=== PATIENT | female | born 1990 | race Caucasian/White ===

== ENCOUNTER → 2017-07-29 15:23 | Outpatient (CLI) | payer OTHER, SELFPAY ==
[2017-07-29 15:26] LABS: Adenovirus,PCR Not Detected (NotDetected); Bordetella Pertussis Not Detected (NotDetected); Chlamydophila Pneumoniae, PCR Not Detected (NotDetected); Coronavirus 229E Not Detected (NotDetected); Coronavirus NL63 Not Detected (NotDetected); Coronavirus OC43 Not Detected (NotDetected); Coronovirus HKU1,PCR Not Detected (NotDetected); Human Metapneumovirus Not Detected (NotDetected); Influenza A, PCR Not Detected (NotDetected); Influenza AH1, 2009 Not Detected (NotDetected); Influenza AH1, PCR Not Detected (NotDetected); Influenza AH3,PCR Not Detected (NotDetected); Influenza B, PCR Not Detected (NotDetected); Mycoplasma Pneumoniae, PCR Not Detected (NotDected); Parainfluenza 1, PCR Not Detected (NotDetected); Parainfluenza 2, PCR Not Detected (NotDetected); Parainfluenza 3, PCR Not Detected (NotDetected); Parainfluenza 4, PCR Not Detected (NotDetected); Respiratory Syncytial Virus Not Detected (NotDetected); Rhinovirus/Enterovirus Not Detected (NotDetected)
== END ==
PROVIDERS: PCP Family Medicine Geriatric Medicine; Visit Provider Nurse Practitioner Family
DX: R11.0 Nausea (principal); R51 Headache; R19.7 Diarrhea, unspecified; R52 Pain, unspecified
CPT/HCPCS: 87486; 87581; 87633; 87798

== ENCOUNTER 2021-02-06 21:48 | Emergency (ER) | payer OTHER, SELFPAY ==
[2021-02-06 22:00] VITALS: BP 113/80; PULSE 78; RESP 18; TEMP 36.8; O2SAT 100; BMI 56.6
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
[2021-02-06 22:34] LABS: Urine Pregnancy, HCG Qual. Negative (Negative)
[2021-02-07 00:02] VITALS: BP 121/72; PULSE 72; RESP 18; TEMP 36.8; O2SAT 100
== END 2021-02-07 00:03 | disposition home or self-care (01) ==
PROVIDERS: Emergency Provider Emergency Medicine
DX: S06.0X0A Concussion without loss of consciousness, initial encounter (principal); S13.4XXA Sprain of ligaments of cervical spine, initial encounter; V43.62XA Car passenger injured in collision with other type car in traffic accident, initial encounter; Y92.414 Local residential or business street as the place of occurrence of the external cause
CPT/HCPCS: 70450; 71045; 72125; 72170; 81025; 96372; 99282

== ENCOUNTER → 2023-02-04 10:19 | Outpatient (CLI) | payer OTHER, SELFPAY ==
--- NOTE | 2023-02-04 10:27 | XR_ITS ---
FINAL REPORT CLINICAL HISTORY: left foot pain. injury back in April, , still having pain, seeing new doctor for second opinion. COMPARISON: None FINDINGS: LEFT FOOT Three views of the left foot demonstrate an oblique lucency through the base of the fifth metatarsal. The margins appear smooth. There appears to be healing fracture through the base of the fifth metatarsal. However, persistent lucency is concerning for possible underlying pseudoarthrosis. The visualized joint spaces are normally aligned. The soft tissues are unremarkable. IMPRESSION: Persistent lucency base of the fifth metatarsal concerning for possible underlying pseudoarthrosis. Please correlate with nature of symptoms. Reviewed, Interpreted and Dictated by Wilfrido Gamino MD Transcribed by Leticia Maxwell Authenticated and [facility]
== END ==
PROVIDERS: PCP Nurse Practitioner Family; Visit Provider Nurse Practitioner Family
DX: M79.672 Pain in left foot (principal)
CPT/HCPCS: 73630

== ENCOUNTER → 2023-03-14 06:50 | Outpatient (CLI) | payer OTHER, SELFPAY ==
--- NOTE | 2023-03-14 06:54 | CT_ITS ---
FINAL REPORT TECHNIQUE: Thin section axial images were obtained through the left lower extremity without contrast. Reconstruction images were obtained from the axial data. Exam was performed using dose reduction technique. CLINICAL HISTORY: foot pain FINDINGS: There is a lucency through the base of the fifth metatarsal consistent with a nondisplaced fracture. This is not acute. Favor late subacute or chronic. There is at least partial bony fusion. No additional acute osseous abnormality is identified. The Lisfranc articulation is intact. Joint spaces are preserved. No acute soft tissue abnormality is identified. IMPRESSION: Late subacute or chronic fracture of the base of the fifth metatarsal. There may be a component of partial nonunion. No acute soft tissue abnormality. Authenticated and [facility]
== END ==
PROVIDERS: PCP Nurse Practitioner Family; Visit Provider Podiatrist
DX: M79.672 Pain in left foot (principal); R60.0 Localized edema; S92.902K Unspecified fracture of left foot, subsequent encounter for fracture with nonunion
CPT/HCPCS: 73700

== ENCOUNTER → 2023-04-10 11:03 | Outpatient (CLI) | payer OTHER, SELFPAY ==
--- NOTE | 2023-04-10 11:05 | XR_ITS ---
FINAL REPORT CLINICAL HISTORY: left foot pain COMPARISON: 02/04/2023 FINDINGS: Left foot Three views were obtained. There is a subacute to chronic fracture of the proximal 5th metatarsal with evidence of interval healing. There is no new bony abnormality. Small calcaneal spurs are identified. IMPRESSION: Interval healing of the proximal 5th metacarpal fracture. Reviewed, Interpreted and Dictated by Julio Finn III, MD Transcribed by Re Sam Authenticated and [facility]
== END ==
PROVIDERS: PCP Nurse Practitioner Family; Visit Provider Podiatrist
DX: M79.672 Pain in left foot (principal)
CPT/HCPCS: 73630

== ENCOUNTER → 2023-05-01 14:17 | Outpatient (CLI) | payer OTHER, SELFPAY ==
--- NOTE | 2023-05-01 14:21 | XR_ITS ---
FINAL REPORT CLINICAL HISTORY: foot pain FINDINGS: Left foot Three views were obtained. There is no acute fracture or dislocation. There is a small plantar spur. There is soft tissue swelling over the dorsum of the foot measuring 2 cm. IMPRESSION: Soft tissue swelling over the dorsum of the foot. Reviewed, Interpreted and Dictated by Wilfrido Gamino MD Transcribed by Re Sam Authenticated and [facility]
== END ==
PROVIDERS: PCP Nurse Practitioner Family; Visit Provider Podiatrist
DX: M79.672 Pain in left foot (principal)
CPT/HCPCS: 73630

== ENCOUNTER 2023-12-04 14:19 | Outpatient (CLI) | payer OTHER, SELFPAY ==
--- NOTE | 2023-12-04 14:23 | XR_ITS ---
FINAL REPORT CLINICAL HISTORY: foot pain..hx of fx COMPARISON: 04/10/2023 FINDINGS: LEFT FOOT: Three views show no evidence of acute displaced fracture or dislocation of the visualized bony architecture. The joint spaces appear normal. A plantar calcaneal spur is present. IMPRESSION: Plantar calcaneal spur, no acute bony abnormality present. Reviewed, Interpreted and Dictated by Mily Davies MD Transcribed by Monica White Authenticated and [facility]
== END 2023-12-04 23:59 | disposition home or self-care (01) ==
LOC: RAD 14:19
PROVIDERS: PCP Nurse Practitioner Family; Visit Provider Podiatrist
DX: M79.672 Pain in left foot (principal)
CPT/HCPCS: 73630

== ENCOUNTER 2023-12-11 09:44 | Outpatient (CLI) | payer OTHER, SELFPAY ==
--- NOTE | 2023-12-11 09:45 | MR_ITS ---
FINAL REPORT TECHNIQUE: Multiplanar MR of the foot without gadolinium enhancement. 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 Very minimal signal change along the old fracture line. However, bony union is noted on MRI. Remaining osseous structures intact. Joints: Unremarkable Tendons:Visualized tendons are unremarkable Ligaments:Major ligaments intact Plantar Fascia:No evidence of tear No cystic or soft tissue mass. IMPRESSION: Healed proximal fifth metatarsal fracture. Reviewed, Interpreted and Dictated by Mily Davies MD Transcribed by Leticia Maxwell Authenticated and [facility]
== END 2023-12-11 23:59 | disposition home or self-care (01) ==
LOC: RAD 09:45
PROVIDERS: PCP Nurse Practitioner Family; Visit Provider Podiatrist
DX: M79.672 Pain in left foot (principal); S92.902K Unspecified fracture of left foot, subsequent encounter for fracture with nonunion; Z87.81 Personal history of (healed) traumatic fracture
CPT/HCPCS: 73718

== ENCOUNTER 2023-12-18 10:00 | Outpatient (CLI) | payer OTHER, SELFPAY ==
--- NOTE | 2023-12-18 10:12 | ECG_ITS ---
APPROVED REPORT Exam: Resting ECG HR:73 bpm ECG Measurements Heart Rate 73 AXES ID 160 P 12 QRSd 106 QRS 44 QT 374 T 28 QTc 399 Conclusion SINUS RHYTHM POSSIBLE RIGHT VENTRICULAR CONDUCTION DELAY [RSR (QR) IN V1/V2] BORDERLINE ECG UNCONFIRMED REPORT Electronically signed by : Shade Lizama MD 12/22/2023 18:57:37
[2023-12-18 10:32] LABS: Basophils # 0.1 K/mm3 (0-0.2); Basophils % 0.9 % (0.1-2.0); Eosinophils # 0.3 K/mm3 (0.0-0.4); Eosinophils % 4.5 % (0.1-12.0); Hematocrit 35.1 % (37.0-47.0); Hemoglobin 13.3 g/dL (12.2-16.2); Lymphocytes # 2.2 K/mm3 (0.7-4.5); Lymphocytes % 37.2 % (10-50); Mean Corpuscular HGB Conc 38.1 g/dL (31.8-35.4); Mean Corpuscular Hemoglobin 36.1 pg (27.0-31.2); Mean Corpuscular Volume 94.9 fl (81-99); Monocytes # 0.3 K/mm3 (0.1-1.0); Monocytes % 5.6 % (1.7-9.3); Neutrophils % 51.8 % (37.0-80.0); Platelet Count 272 K/mm3 (142-424); Red Cell Distribution Width 14.5 % (11.5-17.5); White Blood Count 5.8 K/mm3 (4.8-10.8)
[2023-12-18 10:57] LABS: Chloride 111 mmol/L (98-107); Potassium 4.4 mmoL/L (3.5-5.1); Sodium 140 mmol/L (136-145)
[2023-12-18 10:59] LABS: Alanine Aminotransferase 23 U/L (12-78); Aspartate Amino Transferase 20 U/L (14-36); Blood Urea Nitrogen 8 mg/dl (7-17); Estimated Glomerular Filt Rate 98 ml/min (>60); GFR (African American) 118 ML/MIN (>60)
[2023-12-18 11:00] LABS: Albumin Level 3.8 g/dl (3.5-5.0); Albumin/Globulin Ratio 1.5 (1.1-1.8); Alkaline Phosphatase 66 U/L (38-126); Anion Gap 8.4 mEq/L (5-15); Bilirubin,Total 0.4 mg/dl (0.2-1.3); Calcium 9.4 mg/dl (8.4-10.2); Carbon Dioxide 25 mmol/L (22.0-30.0); Globulin 2.6 g/dL (1.3-3.2); Glucose 103 mg/dl (74-100); Total Protein,Serum 6.4 g/dl (6.3-8.2)
[2023-12-18 11:02] LABS: HCG Qualitative, Serum Negative (Negative)
[2023-12-18 11:05] LABS: C-Reactive Protein 2.9 mg/L (0-4)
[2023-12-18 11:48] LABS: Erythrocyte Sedimentation Rate 15 mm/hr (0-20)
[2023-12-29 12:44] LABS: 1,25 Dihydroxy Vitamin D <10 pg/mL (.); 1,25-Dihydroxy, Vitamin D-2 <10 pg/mL (.); 1,25-Dihydroxy, Vitamin D-3 <10 pg/mL (.)
== END 2023-12-18 23:59 | disposition home or self-care (01) ==
PROVIDERS: PCP Nurse Practitioner Family; Visit Provider Podiatrist
DX: Z01.818 Encounter for other preprocedural examination (principal); S92.902K Unspecified fracture of left foot, subsequent encounter for fracture with nonunion; S92.355S Nondisplaced fracture of fifth metatarsal bone, left foot, sequela
CPT/HCPCS: 36415; 80053; 82652; 84703; 85025; 85651; 86140; 93005

== ENCOUNTER 2024-01-01 10:45 | Day surgery (SDC) | payer OTHER, SELFPAY ==
[2023-12-30 13:24] VITALS: BMI 53.5
[2024-01-01] VITALS (10 sets, daily range): BP systolic 102–119; BP diastolic 55–75; PULSE 87–103; RESP 16–20; TEMP 35–36.8; O2SAT 96–99
[2024-01-01 11:10] LABS: Urine Pregnancy, HCG Qual. Negative (Negative)
--- NOTE | 2024-01-01 11:20 | EXP.ANES.CKL ---
[facility] Disclaimer: The information contained in this section may have been updated after the patient was seen, as this information can be updated by other users. Medical History GERD (gastroesophageal reflux disease) Edema delivery delivered Surgical History History of cholecystectomy History of D&C History of myringotomy History of tonsillectomy Family History Brother Asthma Grandfather Hyperlipidemia Social History (Updated 01/01/24 @ 11:10 by Lurdes Welsh RN) Smoking Status: Never smoker alcohol intake: never substance use type: denies use current occupational status: employed Travel in the last 8 weeks: None [facility] Anesthesia Checklist Patient Identification Patient Identification: Arm Band, Family and Verbal (Name & ) Structural Data Admitted From: Home Planned Operative Procedure/s: ORIF LT 5th metatarsal; Calcaneal autiograft LT peroneal tendon revision Consent for Planned Operative Procedure(s) Verified: Yes Verified Documents: Surgical Consent and History and Physical NPO Status Verified Time NPO: 23:30 Chart Verification Results Verified: CBC, BMP, ECG and HCG Additional verifications Patient : No Anesthesia Reactions: No Cardiovascular Assessment Heart Sounds: S1 & S2 Pulse Rhythm: Irregular Peripheral Edema: No Airway Assessment Mallampati Score:: Class II C-Spine Mobility Assessed: Yes (FROM) TMJ Mobility Assessed: Yes Dentition: Good Dentition (Nothing loose per pt.) Neurological Assessment Level of Consciousness: Awake, Alert, Appropriate and Follows Commands Hx Seizures: No Numbness or tingling in extremities: No Anesthesia Plan Anesthesia Risk discussed: Yes Anesthesia Plan: Verified ASA Class: III Anesthesia Type: General w/block
[2024-01-01] MEDS: LACTATED RINGERS 1000ML 1,000 ML 25 ML IV (11:42)
[2024-01-01] MEDS: CEFAZOLIN SODIUM 2 GM in 0.9 % SODIUM CHLORIDE 100 ML IV (12:04)
--- NOTE | 2024-01-01 14:03 | XR_ITS ---
FINAL REPORT CLINICAL HISTORY: ORIF LEFT 5TH METATARSAL cumulative air kerma: 3.50 mgy 1:47min fluoro time FINDINGS: TWO VIEW LEFT FOOT, INTRAOPERATIVE FINDINGS: Limited digital intraoperative views show ORIF changes of the fifth metatarsal base. No fracture line is evident. No displacement is seen. The forefoot and hindfoot are not seen. IMPRESSION: Limited exam. Post ORIF of the fifth metatarsal base. Authenticated and [facility]
--- NOTE | 2024-01-01 14:15 | XR_ITS ---
FINAL REPORT CLINICAL HISTORY: L 5th met fx ORIF post op COMPARISON: 12/04/2023 FINDINGS: AP, oblique and lateral views of the left foot were obtained. There is no prior exam for comparison. In the interval since the prior exam of 12/04/2023 there has been interval placement of a screw in the proximal fifth metatarsal. There is no acute fracture or dislocation. The joint spaces are preserved. There is a soft tissue defect in the lateral hindfoot, likely postoperative change. IMPRESSION: Interval placement of a screw in the proximal fifth metatarsal, with a soft tissue defect in the lateral hindfoot, likely postoperative change. Reviewed, Interpreted and Dictated by Shantel Bowling MD Transcribed by Monica White Authenticated and [facility]
--- NOTE | 2024-01-01 14:28 | EXP.ANES.I ---
[facility] Anesthesia Record Part I Anesthesia Record I Intake, IV Amount: 1,000 Hydration: Adequate Estimated blood loss (mL): 5 Urine output (mL): 0 Blood Products used (#): none Blood Pressure: 105/62 SaO2: 97 Pulse Rate: 91 Airway Patency: Patent Respiratory Rate: 16 Temperature: 98.2 F Patient is:: Drowsy and Stable Stable to PACU at:: 14:20
--- NOTE | 2024-01-01 14:40 | EXP.OP.NOTE ---
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 She has seen several providers and previous treatment has included RICE protocol, immobilization fracture boot, bone stimulator, 3 hours daily, stretching and therapy. She reports the pain did improve at some point but never fully resolved. It has steadily worsened over the last few months since she got a new job. X-rays and left foot MRI were reviewed which show the fifth met fracture line still visible consistent with nonunion, peroneal edema, peroneal tenosynovitis with questionable tear noted. Conservative treatment discussed but not recommended. DOI: March 2022. We discussed surgery for left 5th met ORIF, non-union revision, peroneal repair. All risks and benefits were discussed including but not limited to: damage to blood vessels and nerves, bleeding, infection, wound complications, delayed, mal or non-union of bone, post-traumatic arthritis, need for further surgery, implant failure, need for removal of implant, prolonged or permanent swelling of the extremity, prolonged or permanent pain or deformity, CRPS/RSD, DVT/PE, and anesthetic complications including . No guarantees were given. All questions fully answered. The patient verbalized understanding and agreed to proceed with surgery. Consent was obtained. Operative findings:: Left ankle fifth metatarsal Avendano fracture with partial healing of the medial cortex. There was a secondary fracture line about 8 mm proximal to the Avendano fracture site that was not healed. No callus noted to the lateral cortex on either fracture lines. Significant subcutaneous tissue noted. Large lipoma over 4 cm round noted over the lateral ankle extending over the peroneal tendons. The peroneal tendons had synovitis but no obvious rupture or tear noted. Modifier: This case took 30 minutes longer than normal due to extensive soft tissue dissection secondary to patient's large body habitus, fracture nonunion. Operative note:: On this date and time patient was deemed an appropriate surgical candidate. With informed consent signed, pre-op regional popliteal block given by anesthesia. The patient was taken to the operating theater. The patient was positioned supine. General anesthesia was induced. IV Ancef given. Tourniquet applied to the mid-calf @225mmHg. Left lower extremity was prepped and draped in normal sterile fashion. Left calcaneal autograft bone harvest: Attention was directed to the lateral calcaneus where a stab incision was made. Full-thickness dissection down to the level of the bone. An autograft bone harvester was used to take a 10 mm piece of calcaneus bone. This was saved for later insertion into the nonunion site. Incision flushed with saline. Maxfuse DBM putty with chips were used to backfill the calcaneal autograft bone harvest site. Skin closed with nylon. Left peroneal tenosynovectomy, ankle lipoma excision: Separate incision was made under the lateral malleolus over the peroneal tendons. Dissection through skin into subcutaneous tissue with care to maintain surgical hemostasis safely retract the vascular structures. Tourniquet inflated, bleeding controlled. There was significant fatty tissue and a well-defined lipoma noted extending from the distal fibula over the peroneal tendons. Lipoma was excised and sent for path. Wound flushed with saline. Peroneal tendons identified and no tear noted. Significant synovitis noted which was debrided with a 15 blade and forceps. Piece of peroneal sent to path. Due to the degree of synovitis, decision made to use a piece of amniotic graft over the tendons to prevent tendon adhesion and scar tissue formation. Deep and subcutaneous tissue repaired with Vicryl. A Quique guard was applied over the area of highest tension at the apex of the incision. Nylon used to close skin. Left 5th Metatarsal/Avendano Fracture ORIF, repair non-union: Attention was directed to the lateral foot, where intra-op fluoroscopy was used to map out linear incision along 5th metatarsal. Full-thickness dissection down to level of bone with care to maintain surgical hemostasis and safely track neurovascular structures. 2 fracture lines visible. Saw, osteotome and currette used to complete and clean the fracture sites. Saline used to flush wound. Next, a 15' blade was used to make a small incision proximal to the 5th met base. Dissection was then carried bluntly with a hemostat to the bone. Fracture was reduced. The wound was flushed with copious amounts of saline. A guide wire for a 4.5mm Vilex screw was inserted under fluoro. Position was checked in all 3 planes. The K-wire was in good position, extending down the medullary canal. At this point, a cannulated drill and tap were used. Calcaneal autograft bone was inserted into fracture site. Due to the subcutaneous tissue and the difficulty trying to insert a solid core without the guidewire, decision made to use a 40mm cannulated 4.5mm screw. It was inserted in standard technique, while compressing the fracture. Good screw purchase and compression was noted. Remaining DBM putty was packed around the fracture site. At this point final position was checked under intra-op fluoro and deemed to be appropriate with stable fixation. Remaining piece of amniotic graft was inserted over the fracture site and tissue was closed with Vicryl and nylon. The wounds were cleansed. The tourniquet was deflated at 70 mins. Immediate hyperemic response was noted to the digits. Skin cleansed. Xeroform, dry sterile dressing was applied followed by a compressive dressing. The patient was awoken from anesthesia and transferred to recovery with vital signs stable and neurovascular status intact. Patient appeared to tolerate procedure and anesthesia well without complication. Materials: Vilex 4.5mm solid core partially threaded screw (40mm), [place] [employer] Amnio Shaan graft x1 (4x4cm), 5cc Max fuse DBM putty with chips Discharge/Plan: Patient is to maintain posterior splint clean dry and intact. Ice behind the knee and elevate on two pillows. Non weight bearing to the left lower extremity with RKS. Take Rx as previously directed. Rx given for Percocet, Gabapentin, Zofran and Motrin 800mg. Obtain post op films, left foot. Follow up with me in one week as scheduled for incision check and dressing change. Tourniquet time (min): 70 Condition: stable Disposition: same day Specimens:: Left ankle lipoma Left peroneal tendon Complications:: None
--- NOTE | 2024-01-02 07:14 | P.PNANES_ITS ---
[facility] Anesthesia Record Part II Anesthesia Record Part II Discharge Time: 14:50 Destination: Surgical Day Care (OP Surgery) PACU nurse assessment reviewed?: Yes Patient Condition:: Good Anesthesia Complications:: None Swallowing reflex intact?: Yes Airway Patency: Patent Cyanosis?: No Blood Pressure: 102/55 SaO2: 97 Respiratory Rate: 18 Pulse Rate: 93 Temperature: 97.4 F Mental Status: Alert & Oriented Pain level:: 0 Nausea and/or vomitting:: None Intake, IV Amount: 0 Hydration: Adequate
[2024-01-02 07:15] VITALS: BP 102/55; PULSE 93; RESP 18; TEMP 36.3; O2SAT 97
== END 2024-01-01 15:22 | disposition home or self-care (01) ==
PROVIDERS: PCP Nurse Practitioner Family; Visit Provider Podiatrist
PROC: (CPT 28322; principal; 2024-01-01 12:15)
PROC: (CPT 28322; 2024-01-01 12:15)
DX: S92.352K Displaced fracture of fifth metatarsal bone, left foot, subsequent encounter for fracture with nonunion (principal); M76.72 Peroneal tendinitis, left leg; M79.672 Pain in left foot; E66.01 Morbid (severe) obesity due to excess calories; Z68.43 Body mass index [BMI] 50.0-59.9, adult; Z79.899 Other long term (current) drug therapy; D17.39 Benign lipomatous neoplasm of skin and subcutaneous tissue of other sites
CPT/HCPCS: 28322; 27626; 11424; 73620; 73630; 76000; 81025; 96374; C1713; J0690; J1100; J1885; J2250; J2405; J3010; J7120

== ENCOUNTER 2024-01-09 10:15 | Outpatient (CLI) | payer OTHER, SELFPAY | END 2024-01-09 23:59 | disposition home or self-care (01) | LOC: LAB.DROPOF 01-10 09:49 | PROVIDERS: PCP Nurse Practitioner Family; Visit Provider Podiatrist | DX: Z98.890 Other specified postprocedural states (principal); R60.9 Edema, unspecified | CPT/HCPCS: 87070; 87205 ==

== ENCOUNTER 2024-01-24 20:57 | Emergency (ER) | payer OTHER, SELFPAY ==
[2024-01-24 21:00] VITALS: BP 131/77; PULSE 114; RESP 16; TEMP 36.9; O2SAT 100; BMI 52.7
[2024-01-24 21:13] VITALS: PULSE 98
--- NOTE | 2024-01-24 21:16 | XR_ITS ---
PROCEDURE INFORMATION: Exam: XR Left Foot Exam date and time: 01/24/2024 9:21 PM Age: 33 years old Clinical indication: Injury or trauma; Fall; Blunt trauma; Foot; Prior surgery; Surgery date: <1 month; Surgery type: Orif left 5th metatarsal; Additional info: Fall, pain, recent surgery TECHNIQUE: Imaging protocol: Radiologic exam of the left foot. Views: 3 or more views. COMPARISON: CR XR FOOT LT MIN 3V 01/01/2024 2:28 PM FINDINGS: Bones/joints: Screw fixation 5th metatarsal; with lucency at the old fracture site; new compared with 01/01/2024. Small heel spur. Soft tissues: Normal. IMPRESSION: Screw fixation 5th metatarsal; with transfers lucency at the old fracture site; new compared with 01/01/2024. Possible recurrent fracture. Recommend clinical correlation.
--- NOTE | 2024-01-24 21:16 | XR_ITS ---
PROCEDURE INFORMATION: Exam: XR Left Ankle Exam date and time: 01/24/2024 9:21 PM Age: 33 years old Clinical indication: Injury or trauma; Fall; Blunt trauma; Ankle; Prior surgery; Surgery date: <1 month; Surgery type: Orif left 5th metatarsal; Additional info: Fall, ankle pain TECHNIQUE: Imaging protocol: Radiologic exam of the left ankle. Views: 3 or more views. COMPARISON: CR XR FOOT LT MIN 3V 01/24/2024 9:21 PM FINDINGS: Bones/joints: No acute fracture. Screw fixation 5th metatarsal. Small heel spur. Soft tissues: Normal. IMPRESSION: 1. No acute fracture. 2. Screw fixation 5th metatarsal. 3. Small heel spur.
[2024-01-24 21:45] VITALS: BP 121/81; PULSE 93; O2SAT 100
--- NOTE | 2024-01-24 21:47 | ED_ITS ---
Discharge Plan Disposition Patient Disposition: Home, Self-Care Chief Complaint: Extremity Injury, Lower Prescriptions Prescriptions: No Action omeprazole 40 mg capsule,delayed release(DR/EC) 40 mg PO DAILY furosemide [Lasix] 20 mg tablet 20 mg PO QID bupropion HCl [Wellbutrin XL] 150 mg tablet extended release 24 hr 150 mg PO DAILY Patient Comments: TAKE 1 TABLET BY MOUTH EVERY MORNING WITH 300 MG FOR TOTAL OF 450 MG meloxicam 7.5 mg tablet 7.5 mg PO DAILY 30 Days Qty: 30 2RF hydrocodone-acetaminophen 7.5-325 mg tablet 1 tab PO Q4-6H PRN (Reason: post op pain) 7 Days Qty: 30 0RF gabapentin 100 mg capsule 100 mg PO TID PRN (Reason: postop nerve pain) 10 Days Qty: 30 0RF ondansetron 4 mg tablet,disintegrating 4 mg PO Q6H Qty: 30 2RF cholecalciferol (vitamin D3) 1,250 mcg (50,000 unit) capsule 1,250 mcg PO WEEKLY 98 Days Qty: 14 0RF propranolol 10 MG tablet 10 mg PO DAILY famotidine 20 MG tablet 20 mg PO BID bupropion HCl [Wellbutrin XL] 300 MG tablet extended release 24 hr 300 mg PO DAILY docusate sodium 100 mg Capsule 100 mg PO DAILY folic acid 1 mg Tablet 1 mg PO DAILY phentermine 37.5 mg Capsule 37.5 mg PO DAILY Rx Instructions: must administer 30 minutes before or 1-2 hours after breakfast methylprednisolone [Medrol (Shakir)] 4 mg tablets,dose pack 4 mg PO PER PKG DIR Referrals Follow up/Referrals: Provider,Referral, MD [Primary Care Provider] - See instructions Activity Restrictions/Add. Instructions Additional Instructions/Restrictions: At this time it was felt you are safe to be discharged home. If new or worsening symptoms please do not hesitate to return the emergency department. Please continue to be nonweightbearing as discussed with Dr. Camarena and follow- up with her as you are able. Clinical Impressions Clinical Impression: Traumatic injury of ankle Print Language Print Language: Wolof Discharge ED Provider: Harinder Portillo General Adult HPI General Chief complaint: Extremity Injury, Lower Stated complaint: AO 01/24/241999 fell on left foot had surgery12/31 Time Seen by Provider: 01/24/24 21:00 Mode of Arrival: Ambulatory Source of Information: Patient Limitations: No Limitations Description of Symptoms (Recalled from ER Triage Doc. by RN): pt reports walking up stairs and fell and hurt left ankle, worried that she hurt her foot where she had surgery of the left foot on 12/31 History of Present Illness HPI narrative: Patient is a 33-year-old female with past medical history of previous fifth metatarsal fracture status post recent surgical intervention who presents emergency department for evaluation of trauma to her left foot. Patient is nonweightbearing after her recent surgery on her left fifth metatarsal. She was going up the stairs when she attempted to put her left upper extremity in the scooter which inadvertently fell out from under her causing her to strike her left ankle which was in the boot on the ground with resultant significant pain. No other trauma. No anticoagulants. No other acute complaints at this time Related Data Home Medications ?Medication ?Instructions ?Recorded ?Confirmed bupropion HCl 300 mg 24 hr tablet, 300 mg PO DAILY Depression 02/06/21 01/20/24 extended release (Wellbutrin XL) famotidine 20 mg tablet 20 mg PO BID GERD 02/06/21 01/20/24 propranolol 10 mg tablet 10 mg PO DAILY High blood pressure 02/06/21 01/20/24 omeprazole 40 mg capsule,delayed 40 mg PO DAILY 02/05/23 01/20/24 release bupropion HCl 150 mg 24 hr tablet, 150 mg PO DAILY 12/05/23 01/20/24 extended release (Wellbutrin XL) furosemide 20 mg tablet (Lasix) 20 mg PO QID 12/05/23 01/20/24 docusate sodium 100 mg capsule 100 mg PO DAILY 12/30/23 01/20/24 folic acid 1 mg tablet 1 mg PO DAILY 12/30/23 01/20/24 phentermine 37.5 mg capsule 37.5 mg PO DAILY 12/30/23 01/20/24 methylprednisolone 4 mg tablets in 4 mg PO PER PKG DIR Pain, swelling 01/01/24 01/20/24 a dose pack (Medrol (Shakir)) Previous Rx's ?Medication ?Instructions ?Recorded meloxicam 7.5 mg tablet 7.5 mg PO DAILY pain 30 days #30 12/05/23 tabs cholecalciferol (vitamin D3) 1,250 1,250 mcg PO WEEKLY low vitamin D 12/30/23 mcg (50,000 unit) capsule 14 weeks #14 caps gabapentin 100 mg capsule 100 mg PO TID PRN postop nerve 12/30/23 pain 10 days #30 caps hydrocodone 7.5 mg-acetaminophen 1 tab PO Q4-6H PRN post op pain 7 12/30/23 325 mg tablet days #30 tabs ondansetron 4 mg disintegrating 4 mg PO Q6H nausea and vomiting 12/30/23 tablet #30 tabs Allergies Allergy/AdvReac Type Severity Reaction Status Date / Time codeine Allergy Verified 01/20/24 11:34 [facility] Disclaimer: The information contained in this section may have been updated after the patient was seen, as this information can be updated by other users. Medical History GERD (gastroesophageal reflux disease) Edema delivery delivered Surgical History History of cholecystectomy History of D&C History of myringotomy History of tonsillectomy Family History Brother Asthma Grandfather Hyperlipidemia Social History Smoking Status: Never smoker alcohol intake: never substance use type: denies use current occupational status: employed Travel in the last 8 weeks: None ROS Obtained: Yes Systems reviewed as appropriate & no additional complaints except as documented Physical Exam General General appearance: alert and in no apparent distress Head Head exam: atraumatic and normocephalic Eye Eye exam: Present PERRL ENT ENT exam: Present mucous membranes moist Neck Neck exam: Present normal inspection Chest Chest inspection: Present normal inspection and symmetric chest wall rise Respiratory Respiratory exam: Absent respiratory distress Cardiovascular Cardiovascular exam: Present regular rate and normal rhythm Abdominal Exam Abdominal exam: Present soft Extremities Exam Extremities exam: Present other (Surgical wound well-approximated and in various stages of healing over the lateral aspect of the left foot and ankle. Mild erythema along the edges, no tracking erythema, no fluctuance. Fibrinous area of forming scar over the left proximal lateral foot.) Neurological Exam Neurological exam: Present alert Psychiatric Psychiatric exam: Present normal affect Skin Skin exam: Present warm and dry Medical Decision Making Michael Inquiry Pt receiving controlled substance: No Vital Signs: 01/24/24 21:00 01/24/24 21:13 01/24/24 21:45 Temperature 98.4 F Temperature Source Oral Pulse Rate 93 H Pulse Rate [Left Dorsalis Pedis] 98 H Pulse Rate [Right] 114 H Respiratory Rate 16 Blood Pressure 121/81 Blood Pressure [Right Arm] 131/77 Blood Pressure Mean [Right Arm] 95 Blood Pressure Source [Right Arm] Automatic Cuff Blood Pressure Position [Right Arm] Sitting 02 Sat by Pulse Oximetry 100 100 Oxygen Delivery Method Room Air Room Air Orders (Tests/Meds): ED MEDICATIONS Discontinued Medications Generic Name Dose Route Start Last Admin Trade Name Johnny PRN Reason Stop Dose Admin Acetaminophen 1,000 mg 01/24/24 21:46 01/24/24 21:52 Acetaminophen 500mg Tab PO 01/24/24 21:47 1,000 mg ONCE ONE Administration Ibuprofen 600 mg 01/24/24 21:46 01/24/24 21:52 Ibuprofen 600 Mg Tablet PO 01/24/24 21:47 600 mg ONCE ONE Administration ORDERS Category Date Time Status Ankle XR - Left minimum 3 Views [XR ankle LT min 3V] Exams 01/24/24 21:16 Taken Stat Foot XR left minimum 3 views [XR foot LT min 3V] Stat Exams 01/24/24 21:16 Taken Medical Decision Narrative: In summary patient is a 33-year-old female past medical history described above who presents emergency department for evaluation traumatic injury sustained to her left ankle in the setting of previous fracture status post recent surgical intervention and nonweightbearing status. Patient is hemodynamically stable nontoxic-appearing upon arrival, afebrile. Differential diagnosis includes mu sculoskeletal strain, refracture, loosening of hardware, among others. Workup will be conducted with plain films of the left ankle and left foot. Initial inventions include Tylenol and ibuprofen. Based on history and physical exam extended trauma survey was considered but will be deferred at this time. X-rays informally inter by me, no significantly displaced hardware or fracture. Given this patient is appropriate for discharge at this time and will continue to be nonweightbearing and follow-up routinely with Dr. Camarena. Critical Care Critical Care Time Critical Care Time: No
[2024-01-24] MEDS: IBUPROFEN 600 MG TABLET PO (21:52)
[2024-01-24] MEDS: ACETAMINOPHEN 500MG TAB 1000 MG PO (21:52)
--- NOTE | 2024-01-24 22:30 | PC.NURSE ---
Pt updated on wait, denies any needs
[2024-01-24 23:11] VITALS: BP 107/87; PULSE 91; RESP 16; TEMP 36.9; O2SAT 100
== END 2024-01-24 23:13 | disposition home or self-care (01) ==
PROVIDERS: Emergency Provider Emergency Medicine
DX: S99.912A Unspecified injury of left ankle, initial encounter (principal); V00.148A Other scooter (nonmotorized) accident, initial encounter
CPT/HCPCS: 73610; 73630; 99283

== ENCOUNTER 2024-02-04 09:37 | Outpatient (CLI) | payer OTHER, SELFPAY ==
--- NOTE | 2024-02-04 09:40 | XR_ITS ---
FINAL REPORT CLINICAL HISTORY: Foot Pain hx of surgery lmp today COMPARISON: None FINDINGS: LEFT FOOT Three views of the left foot demonstrate no acute fracture or dislocation. There is an orthopedic screw bridging a fracture of the proximal fifth metatarsal. The visualized joint spaces are normally aligned. A small plantar calcaneal spur is present. There is dorsal soft tissue swelling in the foot measuring 2.2 cm in thickness. IMPRESSION: Prior ORIF proximal fifth metatarsal fracture, no acute bony abnormality identified. Reviewed, Interpreted and Dictated by Wilfrido Gamino MD Transcribed by Monica White Authenticated and [facility]
== END 2024-02-04 23:59 | disposition home or self-care (01) ==
LOC: RAD 09:38
PROVIDERS: PCP Nurse Practitioner Family; Visit Provider Podiatrist
DX: M79.672 Pain in left foot (principal)
CPT/HCPCS: 73630

== ENCOUNTER 2024-02-13 10:13 | Outpatient (CLI) | payer OTHER, SELFPAY ==
--- NOTE | 2024-02-13 10:16 | XR_ITS ---
FINAL REPORT CLINICAL HISTORY: .surgery December 31 to fix fracture screw 5th metatarsal COMPARISON: None FINDINGS: LEFT ANKLE Three views demonstrate no acute fracture or dislocation. The visualized joint spaces are normally aligned. There is a screw present in the proximal aspect of the fifth metatarsal. Note is made of a plantar calcaneal spur. The soft tissues are unremarkable. IMPRESSION: No acute bony abnormality. Screw is present in the proximal aspect of the fifth metatarsal. Reviewed, Interpreted and Dictated by Wilfrido Gamino MD Transcribed by Monica White Authenticated and [facility][1]
[2024-02-13 10:52] LABS: Basophils # 0.1 K/mm3 (0-0.2); Eosinophils # 0.4 K/mm3 (0.0-0.4); Eosinophils % 4.9 % (0.1-12.0); Hematocrit 40.2 % (37.0-47.0); Hemoglobin 12.9 g/dL (12.2-16.2); Lymphocytes # 2.4 K/mm3 (0.7-4.5); Lymphocytes % 32.5 % (10-50); Mean Corpuscular HGB Conc 32.1 g/dL (31.8-35.4); Mean Corpuscular Hemoglobin 31.1 pg (27.0-31.2); Mean Corpuscular Volume 96.8 fl (81-99); Mean Platelet Volume 7.4 fl (7.4-10.4); Monocytes # 0.4 K/mm3 (0.1-1.0); Monocytes % 4.9 % (1.7-9.3); Neutrophils # 4.2 K/mm3 (1.8-7.8); Neutrophils % 56.8 % (37.0-80.0); Platelet Count 350 K/mm3 (142-424); Red Blood Count 4.15 M/mm3 (4.20-5.40); Red Cell Distribution Width 14.2 % (11.5-17.5); White Blood Count 7.3 K/mm3 (4.8-10.8)
[2024-02-13 11:16] LABS: Erythrocyte Sedimentation Rate 13 mm/hr (0-20)
[2024-02-13 11:52] LABS: Chloride 106 mmol/L (98-107); Potassium 4.1 mmoL/L (3.5-5.1); Sodium 137 mmol/L (136-145)
[2024-02-13 11:55] LABS: Alanine Aminotransferase 30 U/L (12-78); Albumin/Globulin Ratio 1.7 (1.1-1.8); Alkaline Phosphatase 67 U/L (38-126); Anion Gap 11.1 mEq/L (5-15); Aspartate Amino Transferase 25 U/L (14-36); Bilirubin,Total 0.5 mg/dl (0.2-1.3); Blood Urea Nitrogen 10 mg/dl (7-17); Calcium 8.9 mg/dl (8.4-10.2); Carbon Dioxide 24 mmol/L (22.0-30.0); Estimated Glomerular Filt Rate 73 ml/min (>60); GFR (African American) 88 ML/MIN (>60); Globulin 2.4 g/dL (1.3-3.2); Glucose 101 mg/dl (74-100); Total Protein,Serum 6.4 g/dl (6.3-8.2)
== END 2024-02-13 23:59 | disposition home or self-care (01) ==
LOC: LAB 10:14
PROVIDERS: PCP Nurse Practitioner Family; Visit Provider Podiatrist
DX: M25.579 Pain in unspecified ankle and joints of unspecified foot (principal); R60.9 Edema, unspecified
CPT/HCPCS: 36415; 73610; 80053; 85025; 85651; 86140; 87070; 87205

== ENCOUNTER 2024-03-25 09:35 | Outpatient (CLI) | payer OTHER, SELFPAY ==
--- NOTE | 2024-03-25 09:38 | XR_ITS ---
FINAL REPORT CLINICAL HISTORY: Left foot pain COMPARISON: 02/04/2024 FINDINGS: LEFT FOOT Three views of the left foot were obtained. Postoperative changes are again seen in the proximal fifth metatarsal with a screw present. The bony alignment is stable. There is no acute fracture or dislocation. The joint spaces are preserved. There are small soft tissue calcifications lateral to the fifth metatarsal. Plantar calcaneal spur is noted. IMPRESSION: Postoperative changes with stable bony alignment. Reviewed, Interpreted and Dictated by Julio Finn III, MD Transcribed by Leticia Maxwell Authenticated and [facility]
== END 2024-03-25 23:59 | disposition home or self-care (01) ==
LOC: RAD 09:36
PROVIDERS: PCP Nurse Practitioner Family; Visit Provider Podiatrist
DX: M79.672 Pain in left foot (principal)
CPT/HCPCS: 73630

== ENCOUNTER 2024-04-09 08:00 | Outpatient (RCR) | payer OTHER, SELFPAY ==
--- NOTE | 2024-03-10 09:02 | HMH.PTOPWND ---
Rehab Outpt Wound Evaluation Rehab OP Wound Evaluation Start: 03/10/24 08:52 Freq: Status: Active Protocol: Document 03/10/24 08:54 EM (Rec: 03/10/24 09:02 [email or web address] [id number]) E-signed By Michael Mariee, PT Subjective/History History History This is the initial PT wound care eval for Breanne Toledo, 34 yowf who presents with L lateral ankle wound S/P ankle surgery performed 01/01/24 with poor wound healing. She reports no pain at rest, but pain increased with activity. She currently remains NWB on the L LE. She reports no significant PMH. Subjective Subjective Current pain is 0/10, at worst 9/10 in L ankle. Pt has MILD fibrotic edema at this time in the L lower leg. 2/4 TTP in the [place]-wound skin with expected post surgical erythema. New diagnosis of cancer in past 12 No months? Wound Eval Wound Left Lateral Ankle Wound Type Incision Is This a Chronic Wound Yes Wound Length (cm) 1.5 Wound Width (cm) 1.8 Wound Depth (cm) 0.1 Wound Bed Appearance Beefy Red,Yellow Percentage Granulated (%) 50 Percentage of Slough (%) 50 Wound Margins Description Well Defined Surrounding Tissue Appearance [place] Edema Type Non-Pitting Drainage Description Serosanguineous Drainage Amount Moderate Wound Topical Solution/Irrigant Saline Irrigant Primary Dressing collagen Comment puracol Wound Secondary Dressing Type Absorbant Pad Wound Debridement Method Sharps,Gauze,Mechanical Wound Debridement Amount of Tissue Minimal Removed Dressing Change Patient Tolerance Tolerated Well Wound Problems/Impairments Impairments Problems/Impairmments Palpation Tenderness,Impaired Shower/Bathing,Impaired Household Care,Lymphedema Present,Wound Care Needs, Subjective C/O Pain,Impaired Self Care/Self Management Prognosis Rehab Potential Good Comment skilled therapy is indicated for edema control and improved wound healing to return pt to PLOF. Clinical Impression Consistent with Diagnosis Yes Short Term Goals Number of Weeks 2 Decreased Palpation Tenderness Yes: 1/4 L lateral ankle Decrease Wound Area Yes: by 25% Decrease Subjective C/O Pain Yes: 7/10 at worst L lateral ankle Long-Term Goals Number of Weeks 4 Decreased Palpation Tenderness Yes: 0/4 L lateral ankle Decrease Lymphedema Yes: No fibrotic edema L LE Decrease Wound Area Yes: by 75% Decrease Subjective C/O Pain Yes: 4/10 at worst L lateral ankle Patient to be Ind w/ HEP Yes Patient to be Ind w/ Home Wound Care/ Yes Dressing Changes Patient to Understand Lymphedema Yes Treatment and Exercises Outpatient Therapy Plan of Care Treatment Plan May Include Therapeutic Exercise Including Home Yes Exercise Program Manual Therapy Techniques Yes Neuromuscular Re-education Yes Therapeutic Activities to Return to Yes Previous Functional/Work Level ADL/Self Care Education Yes Ultrasound/Phonophoresis Yes Orthotics/Bracing/Splinting Yes Manual Lymphatic Drainage Yes Wound Care Yes Eval/Re-Eval Yes Frequency Times per week 1-2 Duration Number of Weeks 4 Addendums This patient is a candidate for social No or vocational rehab? Patient/Guardian verbally acknowledges Yes understanding of treatment program and consents to further treatment? Patient/Guardian verbally acknowledges Yes understanding of diagnosis, prognosis and goals for treatment? Eval Complexity PT Charges 14294 - High Complexity PHYSICIAN CERTIFICATION: I certify the specified therapy services for Breanne Toledo are required, authorized, and reviewed every 30 days.
--- NOTE | 2024-04-09 09:06 | HMH.RHREAS ---
Rehab Reassessment Rehab OP Re-assessment Start: 03/10/24 08:52 Freq: Status: Active Protocol: Document 04/09/24 08:56 EM (Rec: 04/09/24 09:05 [email or web address] [id number]) E-signed By Michael Mariee, PT Rehab Re-assessment Subjective Subjective Pt reports no c/o pain at this time in the L foot or ankle with rest or with weightbearing activity in cam walker in the clinic this date . She reports pain in left ankle 0/10. Objective Objective Notes MMT: L ankle DF 4/5, PF 4/5, INV 4/5, EVER 3/5 (within available ROM) AROM L ankle (in deg): DF 0-5, PF 0-40, INV 0-35, EVER 0-7 TTP:1/4 L lateral ankle. Pain: 0/10 L ankle L lateral ankle wound: Wound is fully epithelialized at this time. Assessment Progress Assessment Progressing as Expected Assessment Notes Pt has shown significant improvement in wound healing and edema at this time. She continues to have difficulty with edema, worse in the evening. She also needs to increase strength and AROM of the L ankle to facilitate return to PLOF. Patient goals met ST/3 LT/7 Revised Goals LTG: Pt will return L ankle AROM to WNL throughout within 4 wks Pt will return L ankle strength to at least 4+/5 throughout in 4 wks Pt will ambulate without AD without antalgic gait pattern x > 10 min within 4 wks Plan Plan Continue with initial POC and with additional goals as documented above. Frequency of Therapy 1-2 x/wk Duration of therapy 4 wks Time and Billing Re-Eval Time 10 Re-Eval Billing Units 1 PHYSICIAN CERTIFICATION: I certify the specified therapy services for Breanne Toledo are required, authorized, and reviewed every 30 days.
== END 2024-04-09 23:59 | disposition home or self-care (01) ==
LOC: PT 08:00
PROVIDERS: Visit Provider Podiatrist
DX: I89.0 Lymphedema, not elsewhere classified (principal); T81.31XD Disruption of external operation (surgical) wound, not elsewhere classified, subsequent encounter; T81.89XD Other complications of procedures, not elsewhere classified, subsequent encounter
CPT/HCPCS: 97110; 97140; 97163; 97535; 97597

== ENCOUNTER 2024-04-15 09:33 | Outpatient (CLI) | payer OTHER, SELFPAY ==
--- NOTE | 2024-04-15 09:33 | CT_ITS ---
PROCEDURE INFORMATION: Exam: CT Left Lower Extremity, Foot Exam date and time: 04/15/2024 9:33 AM Age: 34 years old Clinical indication: Pain; Foot; Prior surgery; Surgery date: 6+ months; Surgery type: Orif left metatarsal; Additional info: Evaluate for callus formation at non-union site TECHNIQUE: Imaging protocol: CT of the left lower extremity without contrast was performed. Exam focused on the foot. 3D rendering (Not supervised by radiologist): MIP and/or 3D reconstructed images were created by the technologist. Radiation optimization: All CT scans at this facility use at least one of these dose optimization techniques: automated exposure control; mA and/or kV adjustment per patient size (includes targeted exams where dose is matched to clinical indication); or iterative reconstruction. COMPARISON: MR FOOT LT WO CON 12/11/2023 10:10 AM FINDINGS: Bones/joints: Osteopenia. Status post ORIF of the proximal 5th metatarsal. Remote proximal 5th metatarsal fracture demonstrates partial osseous fusion, portion of the fracture line still evident. Stable alignment. Several linear lucencies at the base of the 5th metatarsal are likely postsurgical ghost tracts. Multiple small soft tissue calcifications along the dorsal aspect of the 4th and 5th metatarsals. Small calcaneal lucency and cortical defect along the lateral aspect of the calcaneus with multiple small soft tissue calcifications within the overlying soft tissues, likely postoperative change. Soft tissue edema predominantly along the lateral aspect of the calcaneus and metatarsal postsurgical changes. Thickening and peritendinous edema of the fibularis tendon. Correlate clinically to exclude cellulitis. Calcaneal spur. Soft tissues: See Bones/joints finding. IMPRESSION: Status post ORIF of the proximal 5th metatarsal and calcaneal postsurgical changes, findings as above.
== END 2024-04-15 23:59 | disposition home or self-care (01) ==
LOC: RAD 09:33
PROVIDERS: PCP Nurse Practitioner Family; Visit Provider Podiatrist
DX: S92.902K Unspecified fracture of left foot, subsequent encounter for fracture with nonunion (principal); Z98.890 Other specified postprocedural states
CPT/HCPCS: 73700

== ENCOUNTER 2024-05-18 08:35 | Outpatient (CLI) | payer OTHER, SELFPAY ==
--- NOTE | 2024-05-18 08:38 | XR_ITS ---
FINAL REPORT CLINICAL HISTORY: Left foot fracture COMPARISON: 03/25/2024 FINDINGS: LEFT FOOT Three views of the left foot were obtained. Again noted are postoperative changes of the proximal fifth metatarsal with presumed osteotomy and a screw. The bony alignment is stable. There is some callus formation at the osteotomy site since the prior exam. No new abnormality is identified. There is a small plantar calcaneal spur. The soft tissues are unremarkable. IMPRESSION: Stable postoperative changes with some interval callus formation. Reviewed, Interpreted and Dictated by Julio Finn III, MD Transcribed by Leticia Maxwell Authenticated and [facility]
== END 2024-05-18 23:59 | disposition home or self-care (01) ==
LOC: RAD 08:36
PROVIDERS: PCP Nurse Practitioner Family; Visit Provider Podiatrist
DX: M79.672 Pain in left foot (principal)
CPT/HCPCS: 73630

== ENCOUNTER 2024-06-25 09:39 | Outpatient (CLI) | payer OTHER, SELFPAY ==
--- NOTE | 2024-06-25 09:43 | XR_ITS ---
FINAL REPORT CLINICAL HISTORY: left 5th met ORIF COMPARISON: 05/18/2024 FINDINGS: LEFT FOOT Three views of the left foot were obtained. There is orthopedic screw securing a healed or healing fracture of the base of the fifth metatarsal. There has been progressive healing. A small plantar spur is present. Joint spaces are preserved. No acute soft tissue abnormality is seen. IMPRESSION: Progressive healing fifth metatarsal fracture. Reviewed, Interpreted and Dictated by Wilfrido Gamino MD Transcribed by Daniela Snider Authenticated and [facility]
== END 2024-06-25 23:59 | disposition home or self-care (01) ==
LOC: RAD 09:40
PROVIDERS: PCP Nurse Practitioner Family; Visit Provider Podiatrist
DX: Z98.890 Other specified postprocedural states (principal); M79.672 Pain in left foot
CPT/HCPCS: 73630

== ENCOUNTER 2024-08-20 09:22 | Outpatient (CLI) | payer OTHER, SELFPAY ==
--- NOTE | 2024-08-20 09:24 | XR_ITS ---
FINAL REPORT CLINICAL HISTORY: Post-op surgery November 2023 COMPARISON: 06/25/2024 FINDINGS: Three views of the left foot show post ORIF changes of the 5th metatarsal. There has been further healing of the 5th metatarsal fracture. Bony union is noted. The hardware is unremarkable. The joints are intact. IMPRESSION: Healed 5th metatarsal fracture. Reviewed, Interpreted and Dictated by Mily Davies MD Transcribed by Leticia Maxwell Authenticated and [facility]
== END 2024-08-20 23:59 | disposition home or self-care (01) ==
LOC: RAD 09:23
PROVIDERS: PCP Nurse Practitioner Family; Visit Provider Podiatrist
DX: M79.672 Pain in left foot (principal); R60.9 Edema, unspecified; S92.355K Nondisplaced fracture of fifth metatarsal bone, left foot, subsequent encounter for fracture with nonunion; Z98.890 Other specified postprocedural states
CPT/HCPCS: 73630